=== PATIENT | female | born 1985 | race Caucasian/White ===

== ENCOUNTER → 2024-01-27 14:03 | Outpatient (REF) | payer OTHER, SELFPAY | LOC: HWEVLT 14:03 | PROVIDERS: ATTENDING PHYSICIAN Radiology Diagnostic Radiology | DX: I83.893 Varicose veins of bilateral lower extremities with other complications (principal) | CPT/HCPCS: 93970 ==

== ENCOUNTER → 2024-03-25 07:38 | Outpatient (REF) | payer OTHER, SELFPAY | LOC: RAD 07:38 | PROVIDERS: ATTENDING PHYSICIAN Physician Assistant Medical; FAMILY PHYSICIAN Physician Assistant Medical | DX: R10.13 Epigastric pain (principal); M54.6 Pain in thoracic spine | CPT/HCPCS: 74177; Q9967 ==

== ENCOUNTER → 2024-04-20 09:29 | Outpatient (REF) | payer OTHER, SELFPAY | LOC: HWEVLT 09:29 | PROVIDERS: ATTENDING PHYSICIAN Radiology Vascular & Interventional Radiology | DX: I83.891 Varicose veins of right lower extremity with other complications (principal) | CPT/HCPCS: 36478 ==

== ENCOUNTER → 2024-05-05 11:17 | Outpatient (REF) | payer OTHER, SELFPAY | LOC: HWEVLT 11:17 | PROVIDERS: ATTENDING PHYSICIAN Radiology Vascular & Interventional Radiology | DX: I83.893 Varicose veins of bilateral lower extremities with other complications (principal) | CPT/HCPCS: 93970 ==

== ENCOUNTER 2024-07-08 09:06 | Emergency (ER) | payer OTHER, SELFPAY ==
[2024-07-08 09:08] VITALS: BP 116/73
--- NOTE | 2024-07-08 09:34 | ED.GENMED ---
History of Present Illness
General
Chief Complaint: Chest Pain
Source: patient, spouse and previous hospital records
Exam Limitations: none
Time Seen by Provider: 07/08/24 09:21
Nursing documentation reviewed up to this point in time: agreed with
History of Present Illness
History of Present Illness:
38-year-old female presents with left-sided chest pain describes a pressure, sharp worse with deep breath and movement better with rest no heavy lifting no fever or chills, no hemoptysis, no leg edema has had EL VT treatment to varicose veins
previously, no history of deep venous thrombosis apparently, nondrinker non-smoker, no trauma
Past History
Past History
ED Past Surgical History: Other (Vein treatment to leg)
Social History
Tobacco: Non-smoker
Alcohol: None
Drug: None
Personal:
Living: with family
Employment: Employed
Review of Systems
Review of Systems
All Other Systems: Not applicable
Respiratory: Reports other (With deep breath)
Cardiac: Reports chest pain
ABD/GI: Reports no symptoms
: Reports no symptoms
Musculoskeletal: Reports no symptoms
Skin: Reports no symptoms
Neurological: Reports no symptoms
Hematologic/Lymphatic: Reports no symptoms
Phy Exam
Physical Exam
Physical Exam:
Physical Exam
General: no apparent distress, not acutely ill
Neck: No jaundice
Heart: s1/s2 regular rate and rhythm, no murmur. equal radial pulses.
Lungs: no acute respiratory distress. clear bilaterally
Abdomen: Nontender
Neuro: alert and oriented. no focal neurological deficits
Skin: no rash
Psychiatric: well kept. interactive and cooperative
Extremities: No calf
Scores
Heart Score for Chest Pain Patients
STEMI patient?: Not applicable
Course
Orders/Labs/Results
Orders:
Orders
07/08/24 09:11
EKG [Electrocardiogram (*1)] Urgent
Reason for Study: Chest Pain
07/08/24 09:12
EKG- Treatment ONCE
07/08/24 09:34
Complete Blood Count/With Diff Urgent
Comprehensive Metabolic Panel Urgent
Troponin I Urgent
07/08/24 09:40
D-Dimer Urgent
07/08/24 09:48
Acetaminophen [Tylenol] 650 mg PO NOW STA
US Periph Venous LOWER Ext Abiel Urgent
Comment:
Reason For Exam: cp, varicose veins
Abnormal Lab Results
07/08/24
09:34
RBC 4.04 L 10^6/uL
(4.20-5.40)
Hgb 11.2 L g/dL
(12.0-16.0)
Hct 32.9 L %
(37.0-47.0)
Lymphocytes % 19.2 L %
(20.5-51.1)
Carbon Dioxide 20 L mmol/L
(22-30)
AST 10 L U/L
(14-36)
07/08/24 09:34
07/08/24 09:34
Vital Signs
Initial and Last Documented VS:
Initial Vital Signs
Temp Pulse Resp BP Pulse Ox
98.1 F 86 18 116/73 97
07/08/24 09:08 07/08/24 09:08 07/08/24 09:08 07/08/24 09:08 07/08/24 09:08
Last Documented Vital Signs
Temp Pulse Resp BP Pulse Ox
98.1 F 90 18 105/66 97
07/08/24 09:08 07/08/24 10:45 07/08/24 10:45 07/08/24 10:00 07/08/24 10:45
MDM/Problems Addressed
Differential Diagnosis Includes:
Pleurisy pericarditis noncardiac chest pain pneumothorax PE
MDM/Problems Addressed:
Shortness of breath chest pain
Chronic conditions affecting care:
varicose vein
Acute Exacerbation and/or Progression of Chronic Illness:
varicose veins
*Radiology
Radiology exam reviewed: radiology read reviewed
*Pulse Oximetry
Patient hypoxic: no
*EKG
Interpreted by ED Provider?: Yes
Interpretation: normal
Comparison EKG: no comparison EKG present
Heart Rate: 78
Rate: normal
Rhythm: sinus
Ischemia: no ischemia
*Critical Care Note
Total Time (30-74mins, 75-104mins- exclusive of procedures): Not Applicable
Update Note
Update Note:
Update vital signs are stable no obvious source for her symptoms, reviewed life-threatening concerns in including DVT PE, will try to work her up for this, with the caveat that she is in first trimester would like to limit
radiation if possible patient is in agreement we will hold on chest x-ray at this point check Dopplers
Update D-dimer troponin undetectable, Dopplers will likely be negative, will discharge with Tylenol hold on chest x-ray
ED Attending Note
-
Portions of this chart may have been created with voice recognition software.� Occasional wrong word or��sound alike� substitutions may have occurred due to the inherent limitations of voice recognition software.
Discharge Plan
Departure
Patient Disposition: Home (Routine Discharge)
Date of Disposition: 07/08/24
Time of Disposition: 11:03
Patient with high blood pressure during this ER visit?: No
Condition: Good
Discharge Problem:
Chest pain
Instructions: Costochondritis (DC), Chest Pain PCP Follow Up
Prescriptions:
No Action
vit-iron fum-folic ac 1 EACH tablet
1 ea PO DAILY
ferrous sulfate [FeroSul] 325 MG tablet
325 mg PO DAILY Qty: 42 0RF
ibuprofen 600 MG tablet
600 mg PO Q4HPRN PRN (Reason: moderate pain/cramps) Qty: 90 0RF
misoprostol [Cytotec] 200 mcg tablet
800 mcg vaginal ONCE Qty: 4 1RF
Referrals:
Octavia Anaya PA-C [Family Provider] -
Activity Restrictions/Additional Instructions:
Tylenol as needed for pain, follow-up with your primary care provider and DERMATOPATHOLOGIST return to the ER for worsening symptoms
Interventions
Interventions:
*Risk Screen - Suicide Last Done: 07/08/24 09:10
*General Assessment Last Done: 07/08/24 09:11
*Neglect/Abuse Screening Last Done: 07/08/24 09:10
ED- Fall Risk Assessment Last Done: 07/08/24 09:10
*ED COVID-19 Vaccine History Last Done: 07/08/24 09:46
*Nursing Disposition Last Done: 07/08/24 11:11
ED- Cardiac Assessment Last Done: 07/08/24 09:47
Discharge Date and Time
Discharge Date/Time: 07/08/24 11:11
Print Language: MALTESE
[2024-07-08 09:35] VITALS: BP 111/81
[2024-07-08 09:36] VITALS: BMI 32.7
[2024-07-08 09:47] LABS: % Basophils 0.3 % (0-2); % Eosinophils 1.1 % (0-6); % Immature Granulocytes 0.3 % (0-0.5); % Lymphocytes 19.2 % (20.5-51.1); % Monocytes 5.7 % (1.7-9.3); % Neutrophils 73.4 % (42.2-75.2); Absolute Eosinophils 0.1 10^3/uL (0-0.7); Absolute Lymphocytes 1.2 10^3/uL (1.2-3.4); Absolute Monocytes 0.4 10^3/uL (0.1-0.6); Absolute Neutrophils 4.7 10^3/uL (1.4-6.5); Hematocrit 32.9 % (37.0-47.0); Hemoglobin 11.2 g/dL (12.0-16.0); Mean Corpuscular Hgb 27.7 pg (27.0-31.0); Mean Corpuscular Volume 81.4 fL (81.0-99.0); Mean Platelet Volume 10.1 fL (7.4-10.4); Nucleated Red Blood Cells % 0 %; Platelet Count 228 10^3/uL (130-400); Red Blood Cell Count 4.04 10^6/uL (4.20-5.40); Red Cell Dist. Width 12.3 % (11.5-14.5); White Blood Cell Count 6.5 10^3/uL (4.8-10.8)
[2024-07-08 10:00] VITALS: BP 105/66
[2024-07-08] MEDS: TYLENOL 650 MG PO (10:00)
[2024-07-08 10:03] LABS: ALT (SGPT) 15 U/L (0-35); AST (SGOT) 10 U/L (14-36); Albumin 4.1 g/dl (3.5-5.0); Alkaline Phosphatase 42 U/L (38-126); Blood Urea Nitrogen 13 mg/dl (7-17); Calcium 9.6 mg/dl (8.4-10.2); Carbon Dioxide 20 mmol/L (22-30); Chloride 104 mmol/L (98-107); Estimated Creatinine Clearance 124 ml/min; Glucose 97 mg/dl (70-99); Potassium 4.2 mmol/L (3.5-5.1); Sodium 136 mmol/L (135-145); Total Bilirubin 0.3 mg/dl (0.2-1.3); Total Protein 6.3 g/dl (6.3-8.2); eGFR > 60.00
[2024-07-08 10:15] LABS: Troponin I < 0.012 ng/ml
[2024-07-08 10:32] LABS: D-Dimer < 0.27 ug/mlFEU (0.00-0.50)
== END 2024-07-08 11:11 | disposition home or self-care (01) ==
LOC: EMR 09:06
PROVIDERS: EMERGENCY PHYSICIAN Emergency Medicine; FAMILY PHYSICIAN Physician Assistant Medical
DX: O99.891 Other specified diseases and conditions complicating pregnancy (principal); R07.89 Other chest pain; I83.90 Asymptomatic varicose veins of unspecified lower extremity; Z3A.11 11 weeks gestation of pregnancy
CPT/HCPCS: 99284; 80053; 84484; 85025; 85379; 93005; 93970

== ENCOUNTER → 2024-12-15 08:21 | Outpatient (REF) | payer OTHER, SELFPAY | LOC: PNTC 08:21 | PROVIDERS: ATTENDING PHYSICIAN Obstetrics & Gynecology | DX: O09.519 Supervision of elderly primigravida, unspecified trimester (principal); O09.529 Supervision of elderly multigravida, unspecified trimester; O99.210 Obesity complicating pregnancy, unspecified trimester | CPT/HCPCS: 59025; 76815 ==

== ENCOUNTER → 2024-12-22 08:24 | Outpatient (REF) | payer OTHER, SELFPAY | LOC: PNTC 08:24 | PROVIDERS: ATTENDING PHYSICIAN Obstetrics & Gynecology | DX: O09.519 Supervision of elderly primigravida, unspecified trimester (principal); O99.210 Obesity complicating pregnancy, unspecified trimester | CPT/HCPCS: 59025; 76815 ==

== ENCOUNTER → 2024-12-29 08:21 | Outpatient (REF) | payer OTHER, SELFPAY | LOC: PNTC 08:21 | PROVIDERS: ATTENDING PHYSICIAN Obstetrics & Gynecology | DX: O09.529 Supervision of elderly multigravida, unspecified trimester (principal) | CPT/HCPCS: 36415; 59025; 76816 ==

== ENCOUNTER → 2025-01-05 08:16 | Outpatient (REF) | payer OTHER, SELFPAY | LOC: PNTC 08:16 | PROVIDERS: ATTENDING PHYSICIAN Obstetrics & Gynecology | DX: O09.519 Supervision of elderly primigravida, unspecified trimester (principal); O09.529 Supervision of elderly multigravida, unspecified trimester; O99.210 Obesity complicating pregnancy, unspecified trimester | CPT/HCPCS: 59025; 76815 ==

== ENCOUNTER → 2025-01-12 08:20 | Outpatient (REF) | payer OTHER, SELFPAY | LOC: PNTC 08:20 | PROVIDERS: ATTENDING PHYSICIAN Obstetrics & Gynecology | DX: O09.529 Supervision of elderly multigravida, unspecified trimester (principal); O99.210 Obesity complicating pregnancy, unspecified trimester | CPT/HCPCS: 59025; 76815 ==

== ENCOUNTER → 2025-01-19 08:27 | Outpatient (REF) | payer OTHER, SELFPAY | LOC: PNTC 08:27 | PROVIDERS: ATTENDING PHYSICIAN Obstetrics & Gynecology | DX: O09.529 Supervision of elderly multigravida, unspecified trimester (principal); O99.210 Obesity complicating pregnancy, unspecified trimester | CPT/HCPCS: 59025; 76815 ==

== ENCOUNTER 2025-01-25 07:11 | Inpatient (IN) | payer OTHER, SELFPAY ==
[2025-01-25 07:42] VITALS: BP 127/84; BMI 31.0
[2025-01-25 09:09] LABS: % Basophils 0.4 % (0-2); % Eosinophils 1.3 % (0-6); % Immature Granulocytes 1.2 % (0-0.5); % Lymphocytes 19.7 % (20.5-51.1); % Neutrophils 70.4 % (42.2-75.2); Absolute Eosinophils 0.1 10^3/uL (0-0.7); Absolute Immature Granulocytes 0.1 10^3/uL (0-0.05); Absolute Lymphocytes 1.7 10^3/uL (1.2-3.4); Absolute Monocytes 0.6 10^3/uL (0.1-0.6); Hematocrit 32.9 % (37.0-47.0); Mean Corp Hgb Conc. 33.4 g/dL (33.0-37.0); Mean Corpuscular Hgb 28.3 pg (27.0-31.0); Mean Corpuscular Volume 84.6 fL (81.0-99.0); Mean Platelet Volume 10.8 fL (7.4-10.4); Nucleated Red Blood Cells % 0 %; Platelet Count 209 10^3/uL (130-400); Red Blood Cell Count 3.89 10^6/uL (4.20-5.40); Red Cell Dist. Width 13.5 % (11.5-14.5); White Blood Cell Count 8.5 10^3/uL (4.8-10.8)
[2025-01-25] MEDS: LR 1000 IV ×2 (09:19→14:54)
[2025-01-25] MEDS: PITOCIN 30 UNITS/NSS 500 ML IV (09:20)
[2025-01-25 09:21] LABS: ALT (SGPT) 16 U/L (0-35); AST (SGOT) 14 U/L (14-36); Albumin 3.7 g/dl (3.5-5.0); Alkaline Phosphatase 205 U/L (38-126); Blood Urea Nitrogen 9 mg/dl (7-17); Calcium 9.2 mg/dl (8.4-10.2); Carbon Dioxide 20 mmol/L (22-30); Chloride 107 mmol/L (98-107); Estimated Creatinine Clearance 124 ml/min; Glucose 93 mg/dl (70-99); Sodium 137 mmol/L (135-145); Total Bilirubin 0.4 mg/dl (0.2-1.3); eGFR > 60.00
[2025-01-25] MEDS: SUBLIMAZE 100 MCG EPIDURAL (14:25)
[2025-01-25] MEDS: FENTANYL/BUPIVACAINE 100 EPIDURAL (14:26)
[2025-01-25] MEDS: MOTRIN 600 MG PO (21:37)
[2025-01-25] MEDS: ProAIR HFA INHALER 1 PUFF INH (22:30)
[2025-01-25] MEDS: NON-FORMULARY ITEM 1 UNIT PO (23:05)
[2025-01-26 05:05] LABS: Hematocrit 29.8 % (37.0-47.0); Hemoglobin 9.9 g/dL (12.0-16.0)
[2025-01-26] MEDS: MOTRIN 600 MG PO ×3 (05:15→20:46)
[2025-01-26] MEDS: TYLENOL 650 MG PO ×4 (05:15→20:46)
[2025-01-26] MEDS: SENOKOT-S 1 TABLET PO (09:13)
[2025-01-26] MEDS: FEOSOL 325 MG PO (09:13)
[2025-01-26] MEDS: PRENATAL PLUS 1 TABLET PO (09:13)
[2025-01-26] MEDS: NON-FORMULARY ITEM 1 UNIT INH (20:46)
[2025-01-26] MEDS: NON-FORMULARY ITEM 1 UNIT PO (21:00)
[2025-01-27] MEDS: TYLENOL 650 MG PO (05:43)
[2025-01-27] MEDS: MOTRIN 600 MG PO (05:43)
[2025-01-27] MEDS: FEOSOL PO (09:36)
[2025-01-27] MEDS: PRENATAL PLUS PO (09:36)
[2025-01-27 13:12] LABS: Syphilis/T. pallidum Ab Reflex Negative (Negative)
== END 2025-01-27 10:18 | disposition home or self-care (01) | DRG 807 ==
LOC: LDRP 07:11
PROVIDERS: ADMITTING PHYSICIAN Obstetrics & Gynecology; FAMILY PHYSICIAN Family Medicine
PROC: 10907ZC Drainage of Amniotic Fluid, Therapeutic from Products of Conception, Via Natural or Artificial Opening (ICD-10-PCS; 2025-01-25)
PROC: 3E033VJ Introduction of Other Hormone into Peripheral Vein, Percutaneous Approach (ICD-10-PCS; 2025-01-25)
PROC: 0KQM0ZZ Repair Perineum Muscle, Open Approach (ICD-10-PCS; 2025-01-25)
PROC: 10E0XZZ Delivery of Products of Conception, External Approach (ICD-10-PCS; 2025-01-25)
DX: O70.1 Second degree perineal laceration during delivery (principal); Z37.0 Single live birth; Z3A.40 40 weeks gestation of pregnancy
CPT/HCPCS: 36415; 80053; 85014; 85018; 85025; 86780; 86850; 86900; 86901